=== PATIENT | female | born 1950 | race Caucasian/White ===

== ENCOUNTER 2025-03-29 06:39 | Emergency (ER) | payer MEDICARE, SELFPAY ==
[2025-03-29 06:47] VITALS: BP 138/88; PULSE 93; TEMP 36.9; O2SAT 96; BMI 22.9
--- OUTSIDE RECORDS SUMMARY | 2025-03-29 06:52 | XMS_ITS | Encounter Summary ---
Author Organization [facility] Address [address] [facility] [place] [address] Care Team Providers Care Flag Signaler Name Role Phone Tristin Gagnon MD Unavailable [phone] Tristin Gagnon MD Primary Care Provider [phone] Encounter Details Date Type Department Care Team (Late st Contact Info) Description 02/22/2023 External Result Encounter [facility] [place] [facility] [address] [facility] 110 [place] [phone] Ana David PA [address] [facility] 110 [place], [place] [id number] Social History Tobacco Use Types Packs/Day Years Used Date Smoking Tobacco: Never Passive Smoke Exposure: Never Smokeless Tobacco: Never Alcohol Use Standard Drinks/Week Comments Not Currently 1 (1 standard drink = 0.6 oz pure alcohol) 2 to 4 times a month. Caffeine: 10 cups of caffeine/weekly Comments Unknown Sex and Gender Information Value Date Recorded Sex Assigned at Not on file Legal Sex Female 7:01 PM EDT Gender Identity Not on file Sexual Orientation Not on file documented as of this encounter Plan of Treatment Upcoming Encounters Date Type Department Care Team (Late st Contact Info) Description 06/04/2025 8:00 AM EDT Office Visit [facility] [place] [facility] [address] [facility] 110 [place] [phone] Ana David, PA [address] [facility] 110 [place], [place] [id number] 06/08/2025 8:00 AM EDT Office Visit [facility] [place] [facility] [address] [place] [address] [place] [address] Ana David PA [address] [facility] [address] [place] [address] 09/06/2025 9:35 AM EST Office Visit [facility] [place] [facility] [address] [place] [address] ClydeYeni angeles, LOGISTICS OPERATIONS MANAGER-FIBER TECHNOLOGIST [address] [place] [address] documented as of this encounter Procedures Procedure Name Priority Date/Time Associated Diagnosis Comments BI MAMMOGRAM SCREENING TOMOSYNTHESIS BILATERAL 02/22/2023 12:51 PM EDT documented in this encounter Results * Bilateral screening mammogram with tomosynthesis (02/22/2023 12:51 PM EDT) Anatomical Region Laterality Modality Breast Bilateral Mammography 02/22/2023 12:5 1 PM EDT Narrative 02/22/2023 12:50 PM EDT THIS EXAM WAS PERFORMED AT [facility] MAMM SCREENING BILATERAL W CAD 3-D tomosynthesis images of bilateral breasts in CC and MLO projections are obtained. Synthetic C-views of bilateral breasts in CC and MLO projections. HISTORY: Screening. COMPARISON: Mammogram dated 02/20/2022 FINDINGS: There are scattered areas of fibroglandular density. No suspicious masses, no architectural distortion, no suspicious calcifications in bilateral breasts. Bilateral subpectoral implants limit mammographic sensitivity. Computer-aided detection was used in the interpretation of this examination. IMPRESSION: Negative. No mammographic evidence for malignancy. BIRADS 1 - Negative. Normal interval follow-up in 12 months. OVERALL ASSESSMENT- Negative. A letter of notification will be sent to the patient regarding the results. Finalized by Bre Mccarthy MD on 02/22/2023 12:50 PM 1 b MAMM 1 YR Procedure Note Radiology, Radiologist, - 02/22/2023 THIS EXAM WAS PERFORMED AT [facility] SCREENING BILATERAL W CAD 3-D tomosynthesis images of bilateral breasts in CC and MLO projectionsare obtained. Synthetic C-views of bilateral breasts in CC and MLOprojections. HISTORY: Screening. COMPARISON: Mammogram dated 02/20/2022 FINDINGS: There are scattered areas of fibroglandular density. No suspicious masses, no architectural distortion, no suspiciouscalcifications in bilateral breasts. Bilateral subpectoral implants limitmammographic sensitivity. Computer-aided detection was used in the interpretation of thisexamination. IMPRESSION: Negative. No mammographic evidence for malignancy. BIRADS 1 - Negative. Normal interval follow-up in 12 months. OVERALL ASSESSMENT- Negative. A letter of notification will be sent to the patient regarding theresults. Finalized by Bre Mccarthy MD on 02/22/2023 12:50 PM 1 b MAMM 1 YR Ana David PA IMG BI PROCEDURES Final Result documented in this encounter Visit Diagnoses Not on filedocumented in this encounter Care Teams Flag Signaler Relationship Specialty Start Date End Date Tristin Gagnon MD [address] [facility] 110 [place] [address] PCP - [employer] 08/16/20 Tristin Gagnon MD [address] [facility] 110 [place] [address] PCP - General Internal Medicine 12/22/22 documented as of this encounter
--- OUTSIDE RECORDS SUMMARY | 2025-03-29 06:52 | XMS_ITS | Clinical Summary ---
Author Organization [facility] Address [address] [place] [address] Care Team Providers Care Bufferer Name Role Phone Tristin Gagnon MD Unavailable [phone] Tristin Gagnon MD Primary Care Provider [phone] Allergies Active Allergy Reactions Criticality Noted Date Comments Penicillins Diarrhea,Rash Low 12/24/2021 As a child Medications triamcinolone (Kenalog) 0.5 % cream USE 1 APPLICATION ONCE DAILY EXTERNALLY Active hydrocortisone 2.5 % cream 01/27/20 23 Active cholecalciferol (Vitamin D-3) 50 MCG (1999) capsule 1 capsule 1 (one) time each day at the same time. 06/19/20 22 Active calcium carbonate 1500 (600 Ca) MG tablet 1 (one) time each day at the same time. 06/19/20 22 Active aspirin 81 MG chewable tablet 1 (one) time each day at the same time. Active NIACIN, ANTIHYPERLIPIDEMIC , PO Niacin Active triamcinolone (Kenalog) 0.1 % creamIndications:R timo and other nonspecific skin eruption Apply topically 2 (two) times a day as needed for rash 454 g 1 09/06/19 24 Active lisinopril 10 MG tabletIndications: Benign essential hypertension TAKE 1 TABLET AT THE SAME TIME EACH DAY 100 tablet 3 10/17/19 25 Active atorvastatin (Lipitor) 20 MG tabletIndications: Mixed hyperlipidemia TAKE 1 TABLET ONCE DAILY AT THE SAME TIME 100 tablet 3 10/17/19 25 Active atenolol (Tenormin) 25 MG tabletIndications: Benign essential hypertension TAKE 1 TABLET ONCE DAILY AT THE SAME TIME 100 tablet 3 10/17/19 25 Active hydroCHLOROthiazid e (HYDRODiuril) 12.5 MG tabletIndications: Benign essential hypertension TAKE 1 TABLET ONCE DAILY AT THE SAME TIME 100 tablet 3 10/17/19 25 Active Active Problems Problem Noted Date Diagnosed Date Benign essential hypertension 06/08/2023 Mixed hyperlipidemia 06/08/2023 Other chronic pain 06/08/2023 Other rosacea 06/08/2023 Sigmoid diverticulosis 06/08/2023 Other atopic dermatitis 06/08/2023 Osteopenia of lumbar spine 06/08/2023 Impaired fasting glucose 06/08/2023 Acquired absence of both cervix and uterus 06/08 Angioma of skin 06/08/2023 Vitamin D deficiency 06/08/2023 History of malignant melanoma 06/08/2023 Family history of colon cancer in mother 023 Resolved Problems Problem Noted Date Diagnosed Date Resolved Date Decreased estrogen level 06/08/2023 Encounters Date Type Department Care Team Description 03/08/2025 9:50 AM EDT [facility] [address] [place] [phone] Yeni Reyna COMPUTER GRAPHIC ARTIST-AILEEN Melanocytic nevus of trunk (Primary Dx); Seborrheic keratosis; Angioma of skin; Lentigines; Milia; History of malignant melanoma of skin; History of SCC (squamous cell carcinoma) of skin 03/08/2025 Bamboo flowsheet [facility] [place] [facility] [address] [place] [phone] Yeni Reyna APRN-CNP 03/08/2025 Travel 01/11/2025 Results Follow-Up [facility] [place] [facility] [address] [place] [address] [place] [address] Ana David PA Bilateral screening mammogram with tomosynthesis 01/11/2025 External Result Encounter [facility] [place] [facility] [address] [place] [address] [place] [address] Hemmer, Ana M, PA from Last 3 Months Family History Medical History Relation Name Comments Lung cancer Brother Heart attack Father Heart disease Father Breast cancer Mother Colon cancer Mother Ovarian cancer Sister Relation Name Status Comments Brother Father Mother Sister Social History Tobacco Use Types Packs/Day Years Used Date Smoking Tobacco: Never Passive Smoke Exposure: Never Smokeless Tobacco: Never Tobacco Cessation:Counseling Given: No Alcohol Use Standard Drinks/Week Comments Yes 1 (1 standard drink = 0.6 oz pure alcohol) 2 to 4 times a month. Caffeine: 10 cups of caffeine/weekly PHQ-2 Answer Date Recorded Patient Health Questionnaire-2 Score 0 12/04/2024 Comments Unknown Sex and Gender Information Value Date Recorded Sex Assigned at Not on file Legal Sex Female 7:01 PM EDT Gender Identity Not on file Sexual Orientation Not on file Last Filed Vital Signs Vital Sign Reading Time Taken Comments Blood Pressure 124/88 12/04/2024 8:03 AM EDT Pulse 80 12/04/2024 8:03 AM EDT Temperature 36.5 C (97.7 F) 12/02/2023 7:27 PM EDT Respiratory Rate 16 12/04/2024 8:03 AM EDT Oxygen Saturation 99% 12/04/2024 8:03 AM EDT Inhaled Oxygen Concentration - - Weight 56.2 kg (123 lb 12.8 oz) 12/04/2024 8:03 AM EDT Height 157.5 cm (5' 2 ) 12/04/2024 8:03 AM EDT Body Mass Index 22.64 12/04/2024 8:03 AM EDT Plan of Treatment Upcoming Encounters Date Type Department Care Team (Late st Contact Info) Description 06/04/2025 8:00 AM EDT Office Visit [facility] [place] [facility] [address] [facility] 110 [place] [address] Ana David PA [address] [facility] 110 [place] [address] 06/08/2025 8:00 AM EDT Office Visit [facility] [place] [facility] [address] [facility] 110 [place] [address] Ana David PA [address] [facility] 110 [place] [address] 09/06/2025 9:35 AM EST [facility] [address] [place] [address] Andrea Reynaie VENANCIO Trivedi-NETWORKING SPECIALIST [address] [place] [address] Health Maintenance Due Date Last Done Comments CT Colonography 1952 FIT-DNA 1952 FIT 1950 FOBT 1950 Sigmoidoscopy 1950 Skin Cancer Screening 1951 Influenza Vaccine (#1) 2025 Medicare Annual Wellness (AWV) 06/05/2025 06/05/2024 , 06/08/2023 Mammogram 01/11/2026 01/11/2025, 12/15, 02/22/2023, Additional history exists Colonoscopy 12/26/2031 12/25/2021, 12/14, 09/10/2015, Additional history exists Colorectal Cancer Screening 12/26/2031 Pneumococcal Vaccine: 65+ Years Completed 9, 08/29/2018 Procedures Procedure Name Priority Date/Time Associated Diagnosis Comments BI MAMMOGRAM SCREENING TOMOSYNTHESIS BILATERAL 01/11/2025 8:35 AM EDT COLONOSCOPY Routine 12/25/2021 12:00 PM EDT from Last 3 Months or Most Recently Relevant to Health Maintenance Results * Bilateral screening mammogram with tomosynthesis (01/11/2025 8:35 AM EDT) Anatomical Region Laterality Modality Breast Bilateral Mammography 01/11/2025 8:35 AM EDT Narrative 01/11/2025 8:34 AM EDT [facility] 1950 [id number] EXAM: MAMM SCREENING BILATERAL W CAD, 01/10/2025 11:30 AM CLINICAL INDICATIONS: Screening, Visit for screening mammogram COMPARISON: 02/22/2023 and priors TECHNIQUE: Bilateral digital tomosynthesis MLO and CC views of the breasts were obtained, with creation of synthetic 2D views. Computer aided detection was utilized. FINDINGS: There are scattered areas of fibroglandular density. There are no suspicious masses, calcifications, or areas of architectural distortion. Breast implants as before. IMPRESSION: No mammographic evidence of malignancy. BI-RADS: BI-RADS 2 - Benign RECOMMENDATION: Routine screening mammogram in 1 year. RISK ASSESSMENT: TC Lifetime risk: 4%. The patient's reported personal and family medical history was used calculate their Tyrer-Cuzick lifetime risk of malignancy. Scores less than 20% are not considered high risk per ACR guidelines and patient should continue with the above recommendation. Additionally, this patient's reported personal and/or family history of cancer indicates they may benefit from a genetic counseling consultation and possible genetic testing. If patient has not already completed this evaluation, please consider placing a referral to [facility] via [employer] or . For questions regarding this, please call [phone]. The patient was offered information on genetic counseling at the time of exam. Finalized by Charlie Sam MD on 01/11/2025 8:34 AM 2 b MAMM 1 YR FDA Accredited Performing Facility: [facility] - Mammography/DEXA Imaging [address] [address] Procedure Note Radiology, Radiologist, - 01/11/2025 THIS EXAM WAS PERFORMED AT [facility] 1952 [id number] EXAM: MAMM SCREENING BILATERAL W CAD, 01/10/2025 11:30 AM CLINICAL INDICATIONS: Screening, Visit for screening mammogram COMPARISON: 02/22/2023 and priors TECHNIQUE: Bilateral digital tomosynthesis MLO and CC views of the breastswere obtained, with creation of synthetic 2D views. Computer aideddetection was utilized. FINDINGS: There are scattered areas of fibroglandular density. There are no suspicious masses, calcifications, or areas of architecturaldistortion. Breast implants as before. IMPRESSION: No mammographic evidence of malignancy. BI-RADS: BI-RADS 2 - Benign RECOMMENDATION: Routine screening mammogram in 1 year. RISK ASSESSMENT: TC Lifetime risk: 4%. The patient's reported personal and family medical history was usedcalculate their Tyrer-Cuzick lifetime risk of malignancy. Scores less than20% are not considered high risk per ACR guidelines and patient shouldcontinue with the above recommendation. Additionally, this patient's reported personal and/or family history ofcancer indicates they may benefit from a genetic counseling consultationand possible genetic testing. If patient has not already completed thisevaluation, please consider placing a referral to [facility] via [employer] or . For questions regarding this,please call [phone]. The patient was offered information on geneticcounseling at the time of exam. Finalized by Charlie Sam MD on 01/11/2025 8:34 AM 2 b MAMM 1 YR FDA Accredited Performing Facility: [facility] - Mammography/DEXA Imaging [address] [facility] [address] Ana NICOLE IMG BI PROCEDURES Final Result * Colonoscopy (12/25/2021 12:00 PM EDT) Anatomical Region Laterality Modality Endoscopy 12/25/2021 12:0 0 PM EDT Narrative 12/25/2021 12:00 PM EDT PERFORMED AT [facility] LOCATION:[id number] Abnormal Procedure Note CONVERSION, GENERIC - 12/30/2022 PERFORMED AT [facility] LOCATION:[id number] Abnormal Ana NICOLE ENDOSCOPY PROCEDURE ORDERABLES Final Result from Last 3 Months or Most Recently Relevant to Health Maintenance Insurance [employer] MEDICARE ADVANTAGE Care Teams Bufferer Relationship Specialty Start Date End Date Tristin Gagnon MD [address] [facility] 110 [place], [place] [phone] PCP - [employer] 08/16/20 Tristin Gagnon MD [address] [facility] 110 [place] [address] PCP - General Internal Medicine 12/22/22
--- OUTSIDE RECORDS SUMMARY | 2025-03-29 06:52 | XMS_ITS | Encounter Summary ---
Author Organization [facility] Address [address] [place] [address] Care Team Providers Care Printed Circuit Board Preassembler Name Role Phone Tristin Gagnon MD Unavailable [phone] Tristin Gagnon MD Primary Care Provider [phone] Reason for Visit * Reason Comments Med Refill Encounter Details Date Type Department Care Team (Late Contact Info) Description 05/22/2023 [facility] [address] [facility] [address] [address] [place] [phone] Yeni Reyna, TOP STEEP TENDER-ELEVATOR OPERATOR FREIGHT [address] [facility] [address] [place] [address] Other rosacea Social History Tobacco Use Types Packs/Day Years [...] Encounters Date Type Department Care Team (Late Contact Info) Description 06/04/2025 8:00 AM EDT Office Visit [facility] [address] [facility] 110 [place] [address] Ana David, PA [address] [facility] 110 [place] [address] 06/08/2025 8:00 AM EDT Office Visit [facility] [place] [facility] [address] [place] [address] Ana David PA [address] [place] [address] 09/06/2025 9:35 AM EST Office Visit [facility] [place] [facility] [address] [place] [address] Yeni Reyna APRN-ELEVATOR OPERATOR FREIGHT [address] [place] [address] documented as of this encounter Visit Diagnoses Diagnosis Other rosacea documented in this encounter Care Teams Printed Circuit Board Preassembler Relationship Specialty Start Date End Date Tristin Gagnon MD [address] [facility] 110 [place] [address] PCP - [employer] 08/16/20 Tristin Gagnon MD [address] [facility] 110 [place] [address] PCP - General Internal Medicine 12/22/22 documented as of this encounter
--- OUTSIDE RECORDS SUMMARY | 2025-03-29 06:52 | XMS_ITS | Encounter Summary ---
Author Organization [facility] Address [address] [facility] [place] [address] Care Team Providers Care Bone Drier Name Role Phone Tristin Gagnon MD Unavailable [phone] Tristin Gagnon MD Primary Care Provider [phone] Encounter Details Date Type Department Care Team (Late st Contact Info) Description 06/05/2024 Abstract [facility] [place] [facility] [address] [facility] 110 [place] [address] Tristin Gagnon MD 112 [facility] 110 [place], [place] [phone] Social History Tobacco Use Types Packs/Day Years Used Date Smoking Tobacco: Never Passive Smoke Exposure: Never Smokeless Tobacco: Never Alcohol Use Standard Drinks/Week Comments Yes 1 (1 standard drink = 0.6 oz pure alcohol) 2 to 4 times a month. Caffeine: 10 cups of caffeine/weekly PHQ-2 Answer Date Recorded Patient Health Questionnaire-2 Score 0 06/05/2024 Comments Unknown Sex and Gender Information Value Date Recorded Sex Assigned at Not on file Legal Sex Female 7:01 PM EDT Gender Identity Not on file Sexual Orientation Not on file documented as of this encounter Functional Status * Over the past 2 weeks, how often have you been bothered by any of the following problems? Question Answer Date of Assessment Author Little interest or pleasure in doing things Not at all 06/05/2024 7:00 AM EDT Chana, Belle, NICK N Feeling down, depressed, or hopeless Not at all 06/05/2024 7:00 AM EDT Belle Zayas LP N Patient Health Questionnaire -2 Score 0 06/05/2024 7:00 AM EDT Belle Zayas LP N * Question Answer Date of Assessment Author Trouble falling or staying asleep, or sleeping too much Not at all 06/05/2024 7:00 AM EDT Joaquina Zayas LPN Feeling tired or having felicity le energy Not at all 06/05/2024 7:00 AM EDT Belle Zayas LP N Poor appetite or overeating Not at all 06/05/2024 7: 00 AM EDT Belle Zayas LPN Feeling bad about yourself - or that you are a failure or have let yourself or your family down Not at all 06/05/2024 7:00 AM EDT Belle Zayas LPN Trouble concentrating on thi ngs, such as reading the newspaper or watching television Not at all 06/05/2024 7:00 AM EDT Belle Zayas LP N Moving or speaking so slowly that other people could have noticed? Or the opposite - being so fidgety or restless that you have been moving around a lot more than usual. Not at all 06/05/2024 7:00 AM EDT Belle Zayas LP N Thoughts that you would be better off or hurting yourself in some way Not at all 06/05/2024 7:00 AM EDT Belle Zayas L PN Patient Health Questionnaire -9 Score 0 06/05/2024 7:00 AM EDT Belle Zayas LP N documented as of this encounter Plan of Treatment Upcoming Encounters Date Type Department Care Team (Late st Contact Info) Description 06/04/2025 8:00 AM EDT Office Visit [facility] [place] [facility] [address] [facility] 110 [place] [address] Ana David PA [address] [facility] 110 [place] [address] 06/08/2025 8:00 AM EDT Office Visit [facility] [place] [facility] [address] [place] [address] Ana David PA [address] [facility] 110 [place] [address] 09/06/2025 9:35 AM EST Office [facility] [address] [place] [phone] Yeni Reyna, LUMBER HANDLER-FISHING WORKER [address] [place] [address] documented as of this encounter Visit Diagnoses Not on filedocumented in this encounter Additional Health Concerns Assessment Noted Time PHQ-9 Depression Total Score: 0 06/05/20 24 7:00 AM EDT documented as of this encounter Care Teams Bone Drier Relationship Specialty Start Date End Date Tristin Gagnon MD [address] [facility] 110 [place] [address] PCP - [employer] 08/16/20 Tristin Gagnon MD [address] [facility] 110 [place] [address] PCP - General Internal Medicine 12/22/22 documented as of this encounter
--- OUTSIDE RECORDS SUMMARY | 2025-03-29 06:52 | XMS_ITS | Encounter Summary ---
Author Organization [facility] Address [address] [facility] [place] [address] Care Team Providers Care Shearing Shed Hand Name Role Phone Tristin Gagnon MD Unavailable Tristin Gagnon MD Primary Care Provider [phone] Encounter Details Date Type Department Care Team (Late Contact Info) Description 06/16/2023 Abstract [facility] [place] [facility] 110 [place] [address] Tristin Gagnon MD 112 [facility] 110 [place] [address] Social History Tobacco Use Types Packs/Day Years Used Date Smoking Tobacco: Never Passive Smoke Exposure: Never Smokeless Tobacco: Never Alcohol Use Standard Drinks/Week Comments Yes 1 (1 standard drink = 0.6 oz pure alcohol) 2 to 4 times a month. Caffeine: 10 cups of caffeine/weekly PHQ-2 Answer Date Recorded Patient Health Questionnaire-2 Score 0 06/08/2023 Comments Unknown Sex and Gender Information Value Date Recorded Sex Assigned at Not on file Legal Sex Female 7:01 PM EDT Gender Identity Not on file Sexual Orientation Not on file documented as of this encounter Plan of Treatment Upcoming Encounters Date Type Department Care Team (Late Contact Info) Description 06/04/2025 8:00 AM EDT Office Visit [facility] [place] [facility] [address] [facility] 110 [place] [phone] Ana David PA [address] [place] [address] [place] [address] 06/08/2025 8:00 AM EDT Office Visit [facility] [place] [facility] [address] [place] [address] Ana David PA [address] [place] [address] [place] [address] 09/06/2025 9:35 AM EST Office Visit [facility] [place] [facility] [address] [place] [address] Yeni Reyna APRN-ASSEMBLER CRIMPER [address] [place] [address] documented as of this encounter Visit Diagnoses Not on filedocumented in this encounter Additional Health Concerns Assessment Noted Time PHQ-9 Depression Total Score: 0 06/08/20 8:00 AM EDT documented as of this encounter Care Teams Shearing Shed Hand Relationship Specialty Start Date End Date Tristin Gagnon MD [address] [facility] 110 [place] [address] PCP - [employer] 08/16/20 Tristin Gagnon MD [address] [facility] 110 [place] [address] PCP - General Internal Medicine 12/22/22 documented as of this encounter
--- OUTSIDE RECORDS SUMMARY | 2025-03-29 06:52 | XMS_ITS | Encounter Summary ---
Author Organization [facility] Address [address] [facility] [place] [address] Care Team Providers Care Research Epidemiologist Name Role Phone Tristin Gagnon MD Unavailable [phone] Tristin Gagnon MD Primary Care Provider Encounter Details Date Type Department Care Team (Late Contact Info) Description 01/11/2025 External Result Encounter [facility] [place] [facility] [address] [facility] 110 [place] [phone] Ana David PA [address] [facility] 110 [place] [address] Social History Tobacco Use Types [...] Visit [facility] [place] Dudleynce [address] [facility] 110 [place] [address] Ana David PA [address] [facility] 110 [place] [address] 06/08/2025 8:00 AM EDT Office Visit [facility] 112 [facility] [address] [place] [address] Ana David, PA 112 [facility] 110 [place] [address] 09/06/2025 9:35 AM EST Office Visit [facility] [place] [facility] [address] [place] [address] Yeni Reyna, AUTOMATIC SCREWMAKER-LANGUAGE TRANSLATOR [address] [place] [address] documented as of this encounter Procedures Procedure Name Priority Date/Time Associated Diagnosis Comments BI MAMMOGRAM SCREENING TOMOSYNTHESIS BILATERAL 01/11/2025 8:35 AM EDT documented in this encounter Results * Bilateral screening mammogram with tomosynthesis (01/11/2025 8:35 AM EDT) Anatomical Region Laterality Modality Breast Bilateral Mammography 01/11/2025 8:35 AM EDT Narrative 01/11/2025 8:34 AM EDT THIS EXAM WAS PERFORMED AT [facility] [place] 1952 [id number] EXAM: MAMM SCREENING BILATERAL W CAD, 01/10/2025 [...] evaluation, please consider placing a referral to [facility] lettrs Cancer Genetics via Epic or . For questions regarding this, please call [phone]. The patient was offered information on genetic counseling at the time of exam. Finalized by Charlie Sam MD on 01/11/2025 8:34 AM 2 b MAMM 1 YR FDA Accredited Performing Facility: [facility] - Mammography/DEXA Imaging [address] [facility] [address] Procedure Note Radiology, Radiologist, - 01/11/2025 THIS EXAM WAS PERFORMED AT [facility] [place] 1952 [id number] EXAM: MAMM SCREENING BILATERAL W CAD, 01/10/2025 [...] thisevaluation, please consider placing a referral to [facility] via [employer] or . For questions regarding this,please call [phone]. The patient was offered information on geneticcounseling at the time of exam. Finalized by Charlie Sam MD on 01/11/2025 8:34 AM 2 b MAMM 1 YR FDA Accredited Performing Facility: [facility] - Mammography/DEXA Imaging [address] [facility] [address] Ana NICOLE IMG BI PROCEDURES Final Result documented in this encounter Visit Diagnoses Not on filedocumented in this encounter Additional Health Concerns Assessment Noted Time PHQ-9 Depression Total Score: 0 06/05/20 24 7:00 AM EDT documented as of this encounter Care Teams Research Epidemiologist Relationship Specialty Start Date End Date Tristin Gagnon MD [address] [facility] 110 [place] [address] PCP - [employer] 08/16/20 Tristin Gagnon MD [address] [facility] 110 [place] [address] PCP - General Internal Medicine 12/22/22 documented as of this encounter
--- OUTSIDE RECORDS SUMMARY | 2025-03-29 06:52 | XMS_ITS | Encounter Summary ---
Author Organization [facility] Address [address] [facility] [place] [address] Care Team Providers Care Commissioned Security Officer Name Role Phone Tristin Gagnon MD Unavailable [phone] Tristin Gagnon MD Primary Care Provider [phone] Encounter Details Date Type Department Care Team (Late Contact Info) Description 06/12/2024 External Result Encounter [facility] [place] [facility] [address] [facility] 110 [place] [phone] Ana David PA [address] [facility] 110 [place], [place] [id number] Social History Tobacco Use Types Packs/Day Years [...] Visit [facility] [place] Dudleynce [address] [place] [address] Ana David PA [address] [facility] 110 [place] [address] 06/08/2025 8:00 AM EDT Office Visit [facility] Gertrudis 112 [facility] 110 [place] [address] Ana David, PA 112 [facility] 110 [place] [address] 09/06/2025 9:35 AM EST Office Visit [facility] [place] [facility] [address] [place] [address] Yeni Reyna APRN-INJECTION MOLDING MACHINE SETTER [address] [place] [address] documented as of this encounter Procedures Procedure Name Priority Date/Time Associated Diagnosis Comments DEXA BONE DENSITY 06/12/2024 12: 12 PM EDT documented in this encounter Results * DEXA bone density (06/12/2024 12:12 PM EDT) Anatomical Region Laterality Modality Body Radiographic Yisel ging 06/12/2024 12:1 2 PM EDT Narrative 06/12/2024 12:11 PM EDT THIS EXAM WAS PERFORMED AT [facility] CLINICAL INFORMATION: Estrogen deficiency. Post menopausal TECHNIQUE: Dual X-ray Absorptiometry (DXA) was performed. COMPARISON: No relevant prior studies available. FINDINGS: LUMBAR SPINE (L1-L4): BMD is 1.012 gm/cm2. T-score is -1.5. LEFT FEMORAL NECK: BMD is 0.907 gm/cm2. T-score is -0.9. LEFT TOTAL FEMUR: BMD is 0.834 gm/cm2. T-score is -1.4. RIGHT FEMORAL NECK: BMD is 0.826 gm/cm2. T-score is -1.5. RIGHT TOTAL FEMUR: BMD is 0.760 gm/cm2. T-score is -2.0. The estimated 10-year probability for a major osteoporotic fracture (utilizing FRAX) is 9.7% and for a hip fracture is 1.6%. IMPRESSION: The exam is considered to be osteopenic by the National Osteoporosis Foundation guidelines. Recommend consideration for initiation of therapy. WHO CLASSIFICATION: Normal: T-score -1.0 or above Osteopenia: T-score -1.1 to < 2.5 Osteoporosis: T-score -2.5 or lower Secondary causes of bone loss should be evaluated if clinically indicated since the etiology of low BMD cannot be determined by BMD measurement alone. The current National Osteoporosis Foundation guide recommends treating patients with FRAX ten year risk scores of greater than or equal to 3% for hip fracture or greater than or equal to 20% for major osteoporotic fracture, to reduce their fracture risk. Finalized by Vaibhav Couch MD on 06/12/2024 12:11 PM Procedure Note Radiology, Radiologist, - 06/12/2024 THIS EXAM WAS PERFORMED AT [facility] CLINICAL INFORMATION: Estrogen deficiency. Post menopausal TECHNIQUE: Dual X-ray Absorptiometry (DXA) was performed. COMPARISON: No relevant prior studies available. FINDINGS: LUMBAR SPINE (L1-L4): BMD is 1.012 gm/cm2. T-score is -1.5. LEFT FEMORAL NECK: BMD is 0.907 gm/cm2. T-score is -0.9. LEFT TOTAL FEMUR: BMD is 0.834 gm/cm2. T-score is -1.4. RIGHT FEMORAL NECK: BMD is 0.826 gm/cm2. T-score is -1.5. RIGHT TOTAL FEMUR: BMD is 0.760 gm/cm2. T-score is -2.0. The estimated 10-year probability for a major osteoporotic fracture(utilizing FRAX) is 9.7% and for a hip fracture is 1.6%. IMPRESSION: The exam is considered to be osteopenic by the National OsteoporosisFoundation guidelines. Recommend consideration for initiation oftherapy. WHO CLASSIFICATION: Normal: T-score -1.0 or above Osteopenia: T-score -1.1 to < 2.5 Osteoporosis: T-score -2.5 or lower Secondary causes of bone loss should be evaluated if clinically indicatedsince the etiology of low BMD cannot be determined by BMD measurementalone. The current National Osteoporosis Foundation guide recommends treatingpatients with FRAX ten year risk scores of greater than or equal to 3% forhip fracture or greater than or equal to 20% for major osteoporoticfracture, to reduce their fracture risk. Finalized by Vaibhav Couch MD on 06/12/2024 12:11 PM us Ana NICOLE IMG DXA PROCEDURES Final Resul t documented in this encounter Visit Diagnoses Not on filedocumented in this encounter Additional Health Concerns Assessment Noted Time PHQ-9 Depression Total Score: 0 06/05/20 24 7:00 AM EDT documented as of this encounter Care Teams Commissioned Security Officer Relationship Specialty Start Date End Date Tristin Gagnon MD [address] [facility] 110 [place] [address] PCP - [employer] 08/16/20 Tristin Gagnon MD [address] [facility] 110 [place] [address] PCP - General Internal Medicine 12/22/22 documented as of this encounter
--- OUTSIDE RECORDS SUMMARY | 2025-03-29 06:52 | XMS_ITS | Encounter Summary ---
Author Organization [facility] Address [address] [facility] [place] [address] Care Team Providers Care Executive Housekeeper Name Role Phone Tristin Gagnon MD Unavailable [phone] Tristin Gagnon MD Primary Care Provider [phone] Encounter Details Date Type Department Care Team (Late Contact Info) Description 06/12/2024 Abstract [facility] [place] [facility] [address] [facility] 110 [place] [phone] Tristin Gagnon MD 112 [facility] 110 [place] [address] Social History Tobacco Use Types [...] Office Visit [facility] [place] [facility]ieta [facility] 112 [facility] 110 [place] [phone] Ana David PA [address] [place] [address] 06/08/2025 8:00 AM EDT Office Visit [facility] [place] [facility] [address] [place] [address] Ana David PA [address] [place] [address] 09/06/2025 9:35 AM EST Office Visit [facility] [place] [facility] [address] [place] [address] Yeni Reyna APRN-CHOIR DIRECTOR [address] [place] [address] documented as of this encounter Visit Diagnoses Not on filedocumented in this encounter Additional Health Concerns Assessment Noted Time PHQ-9 Depression Total Score: 0 06/05/20 7:00 AM EDT documented as of this encounter Care Teams Executive Housekeeper Relationship Specialty Start Date End Date Tristin Gagnon MD [address] [facility] 110 [place] [address] PCP - [employer] 08/16/20 Tristin Gagnon MD [address] [facility] 110 [place] [address] PCP - General Internal Medicine 12/22/22 documented as of this encounter
--- NOTE | 2025-03-29 06:58 | PC.NURSE ---
patient thinks she has UTI. states that this feels similar to the last time she had one. patient reports that she is experiencing burning and urgency.
--- NOTE | 2025-03-29 07:19 | ED_ITS ---
HPI HPI - General Adult General Chief complaint: Urogenital-Female Stated complaint: UTI Time Seen by Provider: 03/29/25 07:17 Source: patient Mode of arrival: walk-in History of Present Illness HPI narrative: 74-year-old female presents for dysuria and frequency. It started during the night. No fever or vomiting or gross hematuria. She does not complain of back pain. She has had UTIs in the past and believes she has another 1. Related Data Previous Rx's ?Medication ?Instructions ?Recorded cephalexin 500 mg capsule 500 mg PO TID 7 days #21 cap s 03/29/25 Allergies Allergy/AdvReac Type Severity Reaction Status Date / Time Penicillins Allergy Unknown Unknown Verified 03/29/25 06:47 Review of Systems ROS Narrative A ten point review of systems is negative except as noted above. PFSH PFSH Social History Little interest or pleasure in doing things: not at all Feeling down, depressed, or hopeless: not at all Exam Narrative Exam Narrative: Nurses note and vital signs reviewed and patient is not hypoxic. General: The patient appears well and in no apparent distress. Patient is resting comfortably on cart. Skin: Warm, dry, no pallor noted. There is no rash noted. Head: Normocephalic, atraumatic Eye: Normal conjunctiva, no drainage Ears, Nose, Mouth, and Throat: oral mucosa is moist. Nares patent. Cardiovascular: Regular Rate and Rhythm Respiratory: Patient is in no distress, no accessory muscle use, lungs are clear to auscultation, no wheezing, rales or rhonchi Back: non-tender GI: Soft and nontender Musculoskeletal: The patient has no evidence of calf tenderness, no pitting edema, symmetrical pulses noted bilaterally Neurological: A&O, normal speech Psychiatric: Cooperative Constitutional Vital Signs, click to edit/add: Last Vital Signs Temp 98.5 F 03/29/25 06:47 Pulse 93 H 03/29/25 06:47 Resp 16 03/29/25 06:47 BP 138/88 03/29/25 06:47 Pulse Ox 96 03/29/25 06:47 O2 Del Method Room Air 03/29/25 06:47 Course Vital Signs Vital signs: Vital Signs Temperature 98.5 F 03/29/25 06:47 Pulse Rate 93 H 03/29/25 06:47 Respiratory Rate 16 03/29/25 06:47 Blood Pressure 138/88 03/29/25 06:47 Pulse Oximetry 96 03/29/25 06:47 Oxygen Delivery Method Room Air 03/29/25 06:47 Temperature 98.5 F 03/29/25 06:47 Pulse Rate 93 H 03/29/25 06:47 Respiratory Rate 16 03/29/25 06:47 Blood Pressure 138/88 03/29/25 06:47 Pulse Oximetry 96 03/29/25 06:47 Oxygen Delivery Method Room Air 03/29/25 06:47 Medical Decision Making MDM Narrative Medical decision making narrative: UTI is identified on her urinalysis and she was prescribed Keflex. She was given her first dose here. She listed an allergy to penicillin but it caused her to have diarrhea years ago. Treatment diagnosis and follow-up were discussed with the patient. I have no clinical suspicion of pyelonephritis. Differential Diagnosis Differential Diagnosis: UTI, cystitis, pyelonephritis Lab Data Lab results reviewed: Yes I reviewed the patient's lab results Labs: Lab Results 03/29/25 Range/Units 07:01 Urine Color Dk. orange (YELLOW) Urine Clarity Clear (CLEAR) Urine pH Color interference A (5.0-9.0) Ur Specific [place] 1.025 (1.005-1.025) Urine Protein Color interference A (NEG/TRACE) mg/dL Urine Glucose (UA) Color interference A (NEGATIVE) mg/dL Urine Ketones Color interference A (NEGATIVE) mg/dL Urine Occult Blood Color interference A (NEGATIVE) Urine Nitrite Color interference A (NEGATIVE) Urine Bilirubin Color interference A (NEGATIVE) Urine Urobilinogen Color interference A (0.2-1.0) EU/dL Ur Leukocyte Esterase Color interference A (NEGATIVE) Urine RBC 5-10 A (0-2) #/HPF Urine WBC 20-50 A (NONE SEEN) #/HPF Ur Squamous Epith Cells Rare (NONE/RARE) #/LPF Urine Crystals None seen (None Seen) #/HPF Urine Bacteria Trace A (NONE SEEN) #/HPF Urine Casts None seen (NONE SEEN) #/LPF Urine Mucus None seen (NONE SEEN) Ur Culture Indicated? Yes-[facility] Discharge Plan Discharge Chief Complaint: Urogenital-Female Clinical Impression: Urinary tract infection Patient Disposition: Home, Self-Care Time of Disposition Decision: 07:47 Condition: Good Mode of Transportation: Private Vehicle Prescriptions / Home Meds: New cephalexin 500 mg capsule 500 mg PO TID 7 Days Qty: 21 0RF Print Language: Martiniquais Instructions: Urinary Tract Infection in Women (ED) Referrals: LEONARD BENSON [Primary Care Provider, Internal Medicine] - 1 week
[2025-03-29 07:32] LABS: Glucose Urine UA COLOR INTERFERENCE mg/dL (NEGATIVE)
[2025-03-29 07:40] LABS: Cast Seen? NONE SEEN #/LPF (NONE SEEN); Crystals Seen? None Seen #/HPF (None Seen); Urine Culture Indicated YES-FRMC
[2025-03-29] MEDS: CEPHALEXIN 500 MG CAPSULE PO (08:19)
== END 2025-03-29 08:23 | disposition home or self-care (01) ==
PROVIDERS: Internal Medicine; Emergency Provider Emergency Medicine; PCP Internal Medicine
DX: N39.0 Urinary tract infection, site not specified (principal); R30.0 Dysuria; R35.0 Frequency of micturition
CPT/HCPCS: 81001; 87086; 87088; 87186; 99283